=== PATIENT | male | born 1950 | race Caucasian/White ===

== ENCOUNTER → 2016-07-20 | Outpatient (CLI) | payer OTHER | LOC: HEART CORB 13:23 | DX: I42.0 Dilated cardiomyopathy (principal) ==

== ENCOUNTER → 2016-12-16 | Outpatient (CLI) | payer MEDICARE | LOC: HEART CORB 08:00 | DX: I42.0 Dilated cardiomyopathy (principal) ==

== ENCOUNTER 2020-05-20 17:43 | Emergency (ER) | payer MEDICARE, OTHER ==
[2020-05-20] MEDS ORDERED: KEFLEX CAP 250250 MG PO (20:46)
[2020-05-20] MEDS ORDERED: PYRIDIUM200 MG PO (20:46)
== END 2020-05-20 20:55 | disposition home or self-care (01) ==
LOC: ER1 17:43
DX: N39.0 Urinary tract infection, site not specified (principal); Z88.8 Allergy status to other drugs, medicaments and biological substances
CPT/HCPCS: 81001; 87077; 87086; 87186; 99284

== ENCOUNTER → 2020-10-16 | Outpatient (CLI) | payer MEDICARE ==
[~2020-10-16] MED LIST: KEFLEX CAP 250250 MG PO; PYRIDIUM200 MG PO
== END ==
LOC: HEART CORB 10:10
DX: I50.22 Chronic systolic (congestive) heart failure (principal); I42.0 Dilated cardiomyopathy; R93.1 Abnormal findings on diagnostic imaging of heart and coronary circulation; I27.20 Pulmonary hypertension, unspecified; I07.1 Rheumatic tricuspid insufficiency; I51.7 Cardiomegaly
CPT/HCPCS: 93306